=== PATIENT | female | born 1980 | race African-American/Black ===

== ENCOUNTER 2018-04-05 12:46 | Emergency (ER) | payer MEDICAID ==
[~2018-04-05] VITALS: Ht 165.1 cm; Wt 63.0 kg
[~2018-04-05 12:46] MED LIST: PLAQUENIL PO; QUET50TA PO
[2018-04-05] MEDS ORDERED: KETOROLAC 30MG/ML VIAL IV STA (15:08)
[2018-04-05] MEDS ORDERED: SODIUM CHLORIDE 0.9% 1,000 ML IV ONE (15:08)
[2018-04-05 15:26] LABS: BASOPHILS % 0.4 % (0.0-2.0); EOSINOPHILS % 2.5 % (0.0-5.0); HEMATOCRIT. 32.5 % (36.0-48.0); HEMOGLOBIN. 10.8 g/dL (12.0-16.0); LYMPHOCYTES % 27.2 % (20.0-50.0); MEAN CORPUSCULAR HEMOGLOBIN 30.2 pg (28.0-32.0); MEAN CORPUSCULAR VOLUME 90.5 fL (81.0-99.0); MEAN PLATELET VOLUME 9.2 fl (7.4-10.4); MONOCYTES % 11.7 % (2.0-8.0); NEUTROPHILS % 58.2 % (40.0-76.0); PLATELET 235 x1000/uL (130-400); RED BLOOD CELL COUNT 3.59 mill/uL (4.2-5.4); RED CELL DISTRIBUTION WIDTH 15.7 % (11.6-14.6)
[2018-04-05 15:30] LABS: CHLORIDE 106 mEq/L (98-107)
[2018-04-05 15:43] LABS: CLARITY URINE CLEAR (CLEAR); COLOR URINE YELLOW (YELLOW); KETONES URINE TRACE (NEGATIVE); LEUKOCYTE ESTERASE URINE NEGATIVE (NEGATIVE); NITRITE URINE NEGATIVE (NEGATIVE); OCCULT BLOOD URINE 3+ (NEGATIVE); PH URINE 6.5 (4.5-8.0); PROTEIN URINE 1+ (NEGATIVE); SPECIFIC GRAVITY URINE 1.028 (1.005-1.030)
[2018-04-05 15:52] LABS: HCG SCREEN NEGATIVE
[2018-04-05 16:38] VITALS: BP 165/98
== END 2018-04-05 16:58 | disposition home or self-care (01) ==
LOC: ER 12:46
DX: N92.0 Excessive and frequent menstruation with regular cycle (principal); D25.9 Leiomyoma of uterus, unspecified; R03.0 Elevated blood-pressure reading, without diagnosis of hypertension; M32.9 Systemic lupus erythematosus, unspecified; F31.9 Bipolar disorder, unspecified; F17.210 Nicotine dependence, cigarettes, uncomplicated
CPT/HCPCS: 36415; 80053; 81003; 81025; 83690; 84703; 85025; 86850; 86900; 86901; 96374; 99284; J1885; J7030; Z7610

== ENCOUNTER 2019-02-07 07:13 | Emergency (ER) | payer MEDICAID ==
[~2019-02-07] VITALS: Ht 162.6 cm; Wt 62.0 kg
[2019-02-07] MEDS ORDERED: DIAZEPAM 5 MG TABLET PO ONE (07:45)
[2019-02-07] MEDS ORDERED: KETOROLAC 60MG/2ML VIAL IM ONE (07:45)
[2019-02-07 09:05] VITALS: BP 147/92
== END 2019-02-07 09:07 | disposition home or self-care (01) ==
LOC: ER 07:17
DX: M75.31 Calcific tendinitis of right shoulder (principal); M32.9 Systemic lupus erythematosus, unspecified; F31.9 Bipolar disorder, unspecified; Z90.710 Acquired absence of both cervix and uterus
CPT/HCPCS: 73030; 96372; 99283; J1885

== ENCOUNTER 2020-01-10 15:11 | Emergency (ER) | payer MEDICAID ==
[~2020-01-10] VITALS: Ht 167.6 cm; Wt 60.0 kg
[2020-01-10] MEDS ORDERED: KETOROLAC 30MG/ML VIAL IM ONE (18:30)
[2020-01-10 19:50] VITALS: BP 141/84
== END 2020-01-10 19:54 | disposition home or self-care (01) ==
LOC: ER 15:11
DX: R07.89 Other chest pain (principal); F31.9 Bipolar disorder, unspecified; Z90.710 Acquired absence of both cervix and uterus
CPT/HCPCS: 71045; 81025; 93005; 96372; 99283; J1885